=== PATIENT | female | born 1980 | race Caucasian/White ===

== ENCOUNTER 2017-11-20 08:14 | Emergency (ER) | payer BC, OTHER ==
[~2017-11-20] VITALS: Ht 154.9 cm; Wt 67.1 kg
[2017-11-20 09:18] LABS: APPEARANCE CLOUDY ((CLEAR)); BILIRUBIN NEGATIVE; BLOOD MODERATE; COLOR AMBER ((YELLOW)); GLUCOSE (STRIP) NEGATIVE; KETONES NEGATIVE; LEUKOCYTES LARGE; NITRITE POSITIVE; PROTEIN (STRIP) 30; SPECIFIC GRAVITY 1.021 (1.000-1.030); UROBILINOGEN 0.2 MG/DL (0.2-1.0)
[2017-11-20 09:45] LABS: BACTERIA 3+ /HPF; EPITHELIAL CELLS 1+ /HPF; MUCUS 2+ /LPF; RED BLOOD CELLS 0-5 /HPF (0-5); UCUL ADDED? YES; WHITE BLOOD CELLS 20-30 /HPF (0-5)
[2017-11-20 09:53] LABS: HEMATOCRIT 45.6 % (36.0-46.0); HEMOGLOBIN 15.2 G/DL (11.9-15.5); MCHC 33.3 G/DL (30.0-36.0); MCV 86.9 FL (83-99); PLATELET COUNT 248 K/uL (156-360); RBC DIS.WIDTH-CV 12.7 % (11.8-14.6); RBC DIS.WIDTH-SD 40.3 % (39-53); RED BLOOD COUNT 5.25 M/uL (3.80-5.20); WHITE BLOOD COUNT 10.2 K/uL (4.1-10.2)
[2017-11-20 10:16] LABS: QUANTITATIVE HCG < 4.0 MIU/ML
[2017-11-20 10:36] LABS: ALBUMIN 4.4 G/DL (3.2-4.8); ALKALINE PHOSPHATASE 77 IU/L (3-129); ALT (GPT) 20 IU/L (3-49); AST (GOT) 20 IU/L (2-34); CHLORIDE 106 MEQ/L (99-109); CREATININE 0.7 MG/DL (0.6-1.3); GFR ESTIMATE (CALCULATED) > 59 mL/min/; GLUCOSE 91 mg/dL (70-99); LIPASE 14 U/L (1.0-51.0); SODIUM 141 MEQ/L (136-147); TOTAL BILIRUBIN 0.5 MG/DL (0.0-1.0); TOTAL PROTEIN 7.7 G/DL (6.4-8.3); UREA NITROGEN (BUN) 9 mg/dL (9-23)
[2017-11-20] MEDS ORDERED: ZOFRAN4 MG PO (11:05)
[2017-11-20] MEDS ORDERED: PERCOCET 5/31 TABLET PO (11:05)
[2017-11-20 11:13] VITALS: BP 134/89
[2017-11-22] MEDS ORDERED: CIPRO500 MG PO (15:09)
== END 2017-11-20 11:15 | disposition home or self-care (01) ==
LOC: EME 08:14
DX: K80.20 Calculus of gallbladder without cholecystitis without obstruction (principal); N39.0 Urinary tract infection, site not specified
CPT/HCPCS: 76705; 80053; 81003; 83690; 84702; 85027; 87077; 87086; 87186; 99281; 99283

== ENCOUNTER 2017-11-24 10:42 | Day surgery (SDC) | payer BC, OTHER ==
[~2017-11-24] VITALS: Ht 154.9 cm; Wt 65.0 kg
[~2017-11-24 10:42] MED LIST: CIPRO500 MG PO; PERCOCET 5/31 TABLET PO; ZOFRAN4 MG PO
[2017-11-24 11:34] VITALS: BP 95/59
[2017-11-24] MEDS ORDERED: PERCOCET 5/31 TABLET PO (15:40)
[2017-11-24] MEDS ORDERED: COLACE100 MG PO (15:40)
[2017-11-24 16:20] VITALS: BP 123/76
[2017-11-24 17:22] VITALS: BP 111/64
[2017-11-24 18:45] VITALS: BP 111/60
== END 2017-11-24 19:00 | disposition home or self-care (01) ==
LOC: SDC 10:42
PROC: 0FT44ZZ Resection of Gallbladder, Percutaneous Endoscopic Approach (ICD-10-PCS; principal; 2017-11-24)
DX: K80.10 Calculus of gallbladder with chronic cholecystitis without obstruction (principal); E78.00 Pure hypercholesterolemia, unspecified; Z83.3 Family history of diabetes mellitus; Z84.1 Family history of disorders of kidney and ureter; Z81.8 Family history of other mental and behavioral disorders; Z82.49 Family history of ischemic heart disease and other diseases of the circulatory system
CPT/HCPCS: 88304; J0131; J0690; J1100; J1170; J1885; J2250; J2405; J2710; J3010; J7120; Q0175